=== PATIENT | female | born 1985 | race African-American/Black ===

== ENCOUNTER 2017-05-25 13:32 | Emergency (ER) | payer OTHER ==
[~2017-05-25] VITALS: Ht 160 cm; Wt 84.1 kg
[~2017-05-25 13:32] MED LIST: ACET-66 PO; ARIP15TA3 PO; GUAN1TAB2 PO; IBUP-1547 PO; LORA0.5T83 PO; LURA40 PO; PARO10TA89 PO; RISP2 PO; TRAZ-144 PO
[2017-05-25] MEDS ORDERED: ACETAMINOPHEN 325 MG TABLET PO ONE (16:15)
[2017-05-25 17:04] VITALS: BP 114/67
== END 2017-05-25 18:24 | disposition home or self-care (01) ==
LOC: EMS 13:33
DX: S09.90XA Unspecified injury of head, initial encounter (principal); W01.0XXA Fall on same level from slipping, tripping and stumbling without subsequent striking against object, initial encounter; Y93.89 Activity, other specified; Y92.830 Public park as the place of occurrence of the external cause; Y99.8 Other external cause status
CPT/HCPCS: 99283

== ENCOUNTER 2017-09-11 14:23 | Emergency (ER) | payer OTHER ==
[~2017-09-11] VITALS: Ht 175.3 cm; Wt 88.1 kg
[~2017-09-11 14:23] MED LIST changes: +ARIP15TA2 PO; -ARIP15TA3 PO; -IBUP-1547 PO; +IBUP-2343 PO
[2017-09-11 15:27] LABS: BASOPHILS # (AUTO) 0.03 K/uL (0.00-0.20); BASOPHILS % (AUTO) 0.5 % (0.0-2.0); EOSINOPHILS # (AUTO) 0.14 K/uL (0.00-0.70); EOSINOPHILS % (AUTO) 2.39 % (1.0-6.0); HEMATOCRIT 36.8 % (36-46); HEMOGLOBIN 12.2 g/dL (12.0-16.0); LYMPHOCYTES # (AUTO) 1.9 K/uL (1.0-4.8); LYMPHOCYTES % (AUTO) 32.9 % (22.0-44.0); MEAN CORPUSCULAR HGB CONC 33.1 G/dL (31.0-37.0); MEAN CORPUSCULAR VOLUME 87 fL (80-100); MONOCYTES # (AUTO) 0.3 K/uL (0.1-1.0); MONOCYTES % (AUTO) 5.4 % (2.0-9.0); NEUTROPHILS # (AUTO) 3.4 K/uL (1.8-7.7); NEUTROPHILS % (AUTO) 58.8 % (40.0-70.0); PLATELET COUNT (AUTO) 154 K/uL (150-450); RED BLOOD CELL COUNT(AUTO) 4.21 MIL/uL (4.00-5.20)
[2017-09-11 15:42] LABS: ANION GAP 7 mmol/L (8-16); CALCIUM, TOTAL 8.9 mg/dL (8.8-10.5); CARBON DIOXIDE 29 mmol/L (22-29); CHLORIDE 103 mmol/L (98-107); CREATININE 1.22 mg/dL (0.60-1.30); GLOMERULAR FILTR. RATE CALC > 60 mL/min (>60); GLUCOSE,RANDOM 132 mg/dL (70-110); POTASSIUM 3.5 mmol/L (3.5-5.1); SODIUM SERUM 139 mmol/L (136-145); UREA NITROGEN, BLOOD 12 mg/dL (7-18)
[2017-09-11 15:48] LABS: ALANINE AMINOTRANSFERASE 25 U/L (12-78); ALBUMIN 3.8 g/dL (3.4-5.0); ALKALINE PHOSPHATASE 71 U/L (46-116); ASPARTATE AMINOTRANSFERASE 18 U/L (15-37); BILIRUBIN,TOTAL 0.4 mg/dL (0.1-1.0); TOTAL PROTEIN, SERUM 7.9 g/dL (6.4-8.2)
[2017-09-11 17:00] LABS: APPEARANCE,URINE CLEAR (CLEAR); BILIRUBIN,URINE NEGATIVE (NEGATIVE); GLUCOSE, URINE (UA) NEGATIVE (NEGATIVE); KETONES,URINE NEGATIVE (NEGATIVE); LEUKOCYTE ESTERASE ,URINE TRACE (NEGATIVE); NITRATE,URINE NEGATIVE (NEGATIVE); OCCULT BLOOD,URINE NEGATIVE (NEGATIVE); PROTEIN,URINE NEGATIVE (NEGATIVE)
[2017-09-11 17:26] LABS: SQUAMOUS EPITHELIAL CELL,UR Moderate /LPF (None Seen)
[2017-09-11 17:28] LABS: BACTERIA,URINE Few /HPF (None Seen)
[2017-09-11 17:29] LABS: RBC,URINE 0-2 /HPF (0-2)
[2017-09-11 17:58] VITALS: BP 108/67
== END 2017-09-11 19:02 | disposition home or self-care (01) ==
LOC: EMS 14:24
DX: S09.90XA Unspecified injury of head, initial encounter (principal); N89.8 Other specified noninflammatory disorders of vagina; F79 Unspecified intellectual disabilities; F20.9 Schizophrenia, unspecified; F31.9 Bipolar disorder, unspecified; W19.XXXA Unspecified fall, initial encounter; Y93.89 Activity, other specified; Y92.89 Other specified places as the place of occurrence of the external cause; Y99.8 Other external cause status
CPT/HCPCS: 70450; 81025; 99285

== ENCOUNTER 2017-09-14 15:54 | Emergency (ER) | payer OTHER ==
[~2017-09-14] VITALS: Ht 170.2 cm; Wt 75.0 kg
[2017-09-14 19:00] VITALS: BP 121/73
== END 2017-09-14 19:58 | disposition home or self-care (01) ==
LOC: EMS 15:56
DX: S09.90XA Unspecified injury of head, initial encounter (principal); S19.9XXA Unspecified injury of neck, initial encounter; W01.10XA Fall on same level from slipping, tripping and stumbling with subsequent striking against unspecified object, initial encounter; Y93.89 Activity, other specified; Y92.89 Other specified places as the place of occurrence of the external cause; Y99.8 Other external cause status
CPT/HCPCS: 70450; 72125; 81025; 99284

== ENCOUNTER 2017-12-25 16:51 | Emergency (ER) | payer OTHER ==
[~2017-12-25] VITALS: Ht 160 cm; Wt 81.8 kg
[2017-12-25] MEDS ORDERED: TRAZ-147 PO (17:16)
[2017-12-25] MEDS ORDERED: LURA40 PO (17:16)
[2017-12-25] MEDS ORDERED: MELA1TAB28 PO (17:16)
[2017-12-25] MEDS ORDERED: PARO20TA24 PO (17:26)
[2017-12-25] MEDS ORDERED: LORA1TAB3 PO (17:26)
[2017-12-25] MEDS ORDERED: ACET-2247 PO (17:26)
[2017-12-25] MEDS ORDERED: RISP4 PO (17:26)
[2017-12-25] MEDS ORDERED: IBUPROFEN 600 MG TABLET PO ONE (17:30)
[2017-12-25] MEDS ORDERED: ACETAMINOPHEN 500 MG TABLET PO ONE (17:30)
[2017-12-25 19:14] VITALS: BP 103/56
== END 2017-12-25 19:24 | disposition home or self-care (01) ==
LOC: EMS 16:52
DX: S09.90XA Unspecified injury of head, initial encounter (principal); F20.9 Schizophrenia, unspecified; I10 Essential (primary) hypertension; F84.0 Autistic disorder; W18.30XA Fall on same level, unspecified, initial encounter; Y93.89 Activity, other specified; Y92.89 Other specified places as the place of occurrence of the external cause; Y99.8 Other external cause status
CPT/HCPCS: 99283

== ENCOUNTER 2018-11-22 19:02 | Emergency (ER) | payer OTHER ==
[~2018-11-22] VITALS: Ht 165.1 cm; Wt 90.7 kg
[~2018-11-22 19:02] MED LIST changes: +ACET-2247 PO; -ACET-66 PO; -IBUP-2343 PO; -LORA0.5T83 PO; +LORA1TAB3 PO; +MELA1TAB28 PO; -PARO10TA89 PO; +PARO20TA24 PO; -RISP2 PO; +RISP4 PO; -TRAZ-144 PO; +TRAZ-220 PO
[2018-11-22 21:30] VITALS: BP 119/74
== END 2018-11-22 21:54 | disposition home or self-care (01) ==
LOC: EMS 19:02
DX: S09.90XA Unspecified injury of head, initial encounter (principal); S19.9XXA Unspecified injury of neck, initial encounter; F31.9 Bipolar disorder, unspecified; F20.9 Schizophrenia, unspecified; Z79.899 Other long term (current) drug therapy; Y04.0XXA Assault by unarmed brawl or fight, initial encounter; Y93.89 Activity, other specified; Y92.89 Other specified places as the place of occurrence of the external cause; Y99.8 Other external cause status
CPT/HCPCS: 70450; 72125